=== PATIENT | female | born 1950 | race Caucasian/White ===

== ENCOUNTER 2016-08-15 22:21 | Emergency (ER) | payer MEDICARE, OTHER ==
[~2016-08-15 22:21] MED LIST: ARICEPT5 MG PO; BETAMETHASONE D50 G1 TOP; CEFTIN500 MG PO; CULTURELLE1 EACH PO; DEPAKOTE250 MG PO; HYDROCHLOROTHIA25 MG PO; LIPITOR20 MG PO; NORVASC2.5 MG PO; PROPRANOLOL HCL10 MG PO; REMERON15 MG PO; RISPERDAL0.5 MG PO; VITAMIN D32000 UNI1 PO
== END 2016-08-16 01:46 | disposition critical access hospital (66) ==
LOC: ER 22:21
DX: A41.9 Sepsis, unspecified organism (principal); I50.9 Heart failure, unspecified; E86.0 Dehydration; E87.6 Hypokalemia; E86.1 Hypovolemia; N39.0 Urinary tract infection, site not specified; R41.82 Altered mental status, unspecified; I11.0 Hypertensive heart disease with heart failure; G20 Parkinson's disease; F31.9 Bipolar disorder, unspecified; Z88.1 Allergy status to other antibiotic agents; Z88.0 Allergy status to penicillin; Z88.2 Allergy status to sulfonamides; Z88.8 Allergy status to other drugs, medicaments and biological substances; Z79.899 Other long term (current) drug therapy
CPT/HCPCS: 36415; 51702; 96361; 96365; J0696

== ENCOUNTER 2016-08-15 22:21 | Inpatient (IN) | payer MEDICARE, OTHER ==
[~2016-08-15] VITALS: Ht 160 cm; Wt 86.6 kg
== END 2016-08-24 15:00 | disposition swing bed (61) | DRG 872 ==
LOC: ER 22:21 → MED 08-16 01:47 → ICU 08-16 01:47 → MED 08-21 22:20
PROVIDERS: ADMIT Internal Medicine
PROC: BT14ZZZ Fluoroscopy of Kidneys, Ureters and Bladder (ICD-10-PCS; principal; 2016-08-21)
PROC: 0T788DZ Dilation of Bilateral Ureters with Intraluminal Device, Via Natural or Artificial Opening Endoscopic (ICD-10-PCS; 2016-08-21)
DX: A41.89 Other specified sepsis (principal); N17.9 Acute kidney failure, unspecified; E87.2 Acidosis; N39.0 Urinary tract infection, site not specified; D69.6 Thrombocytopenia, unspecified; G20 Parkinson's disease; E83.42 Hypomagnesemia; R65.20 Severe sepsis without septic shock; B96.4 Proteus (mirabilis) (morganii) as the cause of diseases classified elsewhere; F31.9 Bipolar disorder, unspecified; F03.90 Unspecified dementia, unspecified severity, without behavioral disturbance, psychotic disturbance, mood disturbance, and anxiety; I10 Essential (primary) hypertension; E11.9 Type 2 diabetes mellitus without complications; Z88.0 Allergy status to penicillin; Z88.2 Allergy status to sulfonamides; R35.1 Nocturia; N39.498 Other specified urinary incontinence; E87.6 Hypokalemia; E86.0 Dehydration; F41.8 Other specified anxiety disorders; B96.20 Unspecified Escherichia coli [E. coli] as the cause of diseases classified elsewhere; K13.0 Diseases of lips; Z79.4 Long term (current) use of insulin; N30.80 Other cystitis without hematuria; E66.9 Obesity, unspecified; Z68.34 Body mass index [BMI] 34.0-34.9, adult; Z88.8 Allergy status to other drugs, medicaments and biological substances; Z88.1 Allergy status to other antibiotic agents
CPT/HCPCS: 36415; 92610; 97161-GP; 97166; C1751; C1758; C2617; J0696; J1580; J1650; J2704; Q9967